=== PATIENT | female | born 1995 | race Caucasian/White ===

== ENCOUNTER 2017-10-15 12:37 | Emergency (ER) | payer OTHER ==
[2017-10-15 13:34] VITALS: BP 155/85
--- NOTE | 2017-10-15 13:55 | ED ---
Throat Pain/Nasal Congestion - HPI Summary HPI Summary: 22 yr old female with the complaint of ear pain, sinus congestion, post nasal drip. Onset of symptoms last week. No fever, chills. No other complaints. - History of Current Complaint Chief Complaint: UCGeneralIllness Time Seen by Provider: 10/15/17 13:39 - Allergies/Home Medications Allergies/Adverse Reactions: Allergies Allergy/AdvReac Type Severity Reaction Status Date / Time POSS LOCAL ANESTHESIA Allergy Swelling Uncoded 10/15/17 13:35 Home Medications: Home Medications Guaifenesin/Dextromethorphan [Robitussin Cough-Chest Dm Liq] 10 ml PO Q12HR [History Confirmed 10/15/17] PMH/Surg Hx/FS Hx/Imm Hx - Surgical History Surgery Procedure, Year, and Place: BUNIONECTOMY BILATERAL Infectious Disease History: No Infectious Disease History: Denies: Traveled Outside the [place] in Last 30 Days - Family History Known Family History: Positive: None - Social History Occupation: Student Lives: Dormitory/Roommates Alcohol Use: Rare Substance Use Type: Reports: None Smoking Status (MU): Never Smoked Tobacco Review of Systems Negative: Fever, Chills Positive: Ear Ache, Other - sinus pain Positive: Cough Negative: Rash, Bruising All Other Systems Reviewed And Are Negative: Yes Physical Exam Triage Information Reviewed: Yes Vital Signs On Initial Exam: Initial Vitals Temp Pulse Resp BP Pulse Ox 98.1 F 79 16 155/85 100 10/15/17 13:30 10/15/17 13:30 10/15/17 13:30 10/15/17 13:30 10/15/17 13:30 Vital Signs Reviewed: Yes Appearance: Positive: Well-Appearing, No Pain Distress Skin: Positive: Warm, Skin Color Reflects Adequate Perfusion Head/Face: Positive: Normal Head/Face Inspection Eyes: Positive: EOMI ENT: Positive: Pharyngeal erythema, Nasal drainage, TM red - left with small effusion and also scaring consistent with prior OM., Sinus tenderness. Negative : Muffled voice, Hoarse voice Neck: Positive: Nontender Respiratory/Lung Sounds: Positive: Clear to Auscultation, Breath Sounds Present Cardiovascular: Positive: RRR. Negative: Murmur Abdomen Description: Positive: Nontender Musculoskeletal: Positive: Strength/ROM Intact Neurological: Positive: Sensory/Motor Intact, Alert, Oriented to Person Place, Time, CN Intact II-III, Normal Gait, Speech Normal Psychiatric: Positive: Normal - Gregoria Coma Scale Best Eye Response: 4 - Spontaneous Best Motor Response: 6 - Obeys Commands Best Verbal Response: 5 - Oriented Coma Scale Total: 15 Diagnostics - Vital Signs Vital Signs Temp Pulse Resp BP Pulse Ox 10/15/17 13:30 98.1 F 79 16 155/85 100 - Laboratory Lab Statement: Any lab studies that have been ordered have been reviewed, and results considered in the medical decision making process. EENT Course/Dx - Course Course Of Treatment: 22 yr old with sinusitis, and OM. Plan Rx Biaxin. FU with PMD. - Diagnoses Provider Diagnoses: Sinusitis, Otitis media, Hypertension Discharge - Sign-Out/Discharge Documenting (check all that apply): Discharge/Admit/Transfer - Discharge Plan Condition: Good Disposition: HOME Prescriptions: Clarithromycin TAB* [Biaxin 500 MG TAB*] 500 mg PO BID #20 tab Patient Education Materials: Ear Infection (ED), Sinusitis (ED), Hypertension ( ED) Referrals: Non Staff,Doctor [Primary Care Provider] - [facility] [place]Outside] - Billing Disposition and Condition Condition: GOOD Disposition: HOME
== END 2017-10-15 13:58 | disposition home or self-care (01) ==
LOC: UCCORT 12:37
DX: J32.9 Chronic sinusitis, unspecified (principal); H65.92 Unspecified nonsuppurative otitis media, left ear; I10 Essential (primary) hypertension
CPT/HCPCS: 99202; G0463